=== PATIENT | female | born 1995 | race Caucasian/White ===

== ENCOUNTER 2016-02-27 11:08 | Emergency (ER) | payer OTHER ==
[2016-02-27 12:11] VITALS: BP 124/76
[2016-02-27] MEDS ORDERED: HYDROCODONE/ACETAMINOPHEN 5-325 MG 6 TAB/DSPK PO PRN (13:58)
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
== END 2016-02-27 14:17 | disposition home or self-care (01) ==
LOC: ER 11:08
DX: S71.012A Laceration without foreign body, left hip, initial encounter (principal); V87.7XXA Person injured in collision between other specified motor vehicles (traffic), initial encounter; F17.210 Nicotine dependence, cigarettes, uncomplicated
CPT/HCPCS: 99283

== ENCOUNTER 2019-03-06 18:30 | Emergency (ER) | payer SELFPAY | END 2019-03-06 19:32 | disposition left against medical advice (07) | LOC: ER 18:30 | DX: Z53.21 Procedure and treatment not carried out due to patient leaving prior to being seen by health care provider (principal) ==

== ENCOUNTER 2019-06-02 13:35 | Emergency (ER) | payer OTHER ==
[2019-06-02] MEDS ORDERED: CEFTRIAXONE INJ 1000 MG VIAL IM ONE (15:08)
--- NOTE | 2019-06-02 15:10 | ER Document Report ---
ED ENT - General Stated Complaint: SORE THROAT Time Seen by Provider: 06/02/19 14:18 Mode of Arrival: Ambulatory Information source: Patient Notes: 23-year-old woman presents to the emergency department with a history of diagnosed with strep throat on Saturday 1 week ago. Apparently treated with clindamycin, states that her symptoms have not improved. She contacted the urgent care and was told that she should come to the emergency department. She has a history of allergy to penicillin. TRAVEL OUTSIDE OF THE [place] IN LAST 30 DAYS: No - Related Data Allergies/Adverse Reactions: codeine Allergy (Verified 06/02/19 15:07) diphenhydramine [From Benadryl] Allergy (Verified 06/02/19 15:07) lorazepam [From Ativan] Allergy (Verified 06/02/19 15:07) Penicillins Allergy (Verified 06/02/19 15:07) Past Medical History - Social History Smoking Status: Unknown if Ever Smoked Family History: Reviewed & Not Pertinent Psychiatric Medical History: Reports: Hx Anxiety, Hx Attention Deficit Hyperactivity Disorder, Hx Depression Past Surgical History: Reports: Hx Oral Surgery Review of Systems - Review of Systems Notes: Constitutional: Negative for fever. HENT: + Sore throat. Eyes: Negative for visual changes. Cardiovascular: Negative for chest pain. Respiratory: Negative for shortness of breath. Gastrointestinal: Negative for abdominal pain, vomiting or diarrhea. Genitourinary: Negative for dysuria. Musculoskeletal: Negative for back pain. Skin: Negative for rash. Neurological: Negative for headaches, weakness or numbness. 10 point ROS negative except as marked above and in HPI. Physical Exam - Vital signs Vitals: Temp Pulse Resp BP Pulse Ox 98.3 F 87 16 119/69 98 06/02/19 13:36 06/02/19 13:36 06/02/19 13:36 06/02/19 13:36 06/02/19 13:36 - Notes Notes: PHYSICAL EXAMINATION: Physical Exam: General: Well-nourished well-developed in no acute distress HEENT: NC/AT, pupils equal round and reactive to light, MM moist,nares clear, oropharynx clear, airway patent Neck: supple, no adenopathy, no masses. Good range of motion Lungs: clear, no wheezing, no rales no rhonchi CVS: Regular rate and rhythm no murmur gallop or rub Abdomen: Soft, active, nontender, no masses, no hepatosplenomegaly Ext: No edema, clubbing or cyanosis. Neuro: Alert and responsive, moving all 4 extremities on command, cranial nerves intact, no focal findings Skin: Intact no open lesions, no rash PSYCH: Normal mood, normal affect. Course - Re-evaluation Re-evalutation: 06/02/19 16:23 Patient was given Rocephin 1 g IM, monitored watched in the emergency department for approximately 1 hour, no adverse reaction. She has been sent home with cefdinir 300 mg twice daily for 10 days. Of asked her to follow-up with her doctor as needed. - Vital Signs Vital signs: Temp Pulse Resp BP Pulse Ox 98.2 F 73 18 121/77 100 06/02/19 16:40 06/02/19 16:40 06/02/19 16:40 06/02/19 16:40 06/02/19 16:40 Discharge - Discharge Clinical Impression: Pharyngitis Qualifiers: Pharyngitis/tonsillitis etiology: streptococcus Qualified Code(s): J02.0 - Streptococcal pharyngitis Condition: Good Disposition: HOME, SELF-CARE Instructions: Strep Throat ([facility]) Additional Instructions: You were treated with a shot of Rocephin and a change of antibiotics, Cefdinir for strep throat which did not improve on clindamycin. Continue to use Tylenol for pain, gargle with warm salt water, follow-up with your primary care doctor or return to the emergency department if your symptoms are worsening or if you have other concerns. HOME CARE INSTRUCTIONS & INFORMATION: Thank you for choosing us for your medical needs. We hope you're satisfied with the care you received. After you leave, you must properly care for your problem and, at the same time, observe its progress. Any condition can change. Some illnesses can change rapidly over hours or days. If your condition worsens, return to the Emergency Department or see your physician promptly. ABOUT YOUR X-RAYS AND EKG'S: If you had an EKG or X-rays taken, they have been read by the Emergency Physician. The X-rays and EKG's will also be read by a Radiologist or Pickle Water Pump Operator within 24 hours. If discrepancies are noted, you will be notified by telephone. Please be certain the ED has a correct telephone number & address where you can be reached. Also, realize that some fractures or abnormalities do not show up on initial X-rays. If your symptoms continue, see your physician. ABOUT YOUR LABORATORY TEST: If you had laboratory tests, the results have been reviewed by the Emergency Physician. Some test results (for example cultures) may not be available for several days. You will be contacted if any test result shows you need additional treatment. Please be certain the ED has a correct telephone number and address where you can be reached. ABOUT YOUR MEDICATIONS: You will receive instructions on how to take your medicine on the prescription label you receive. Additional information may be provided by the Pharmacy. If you have questions afterwards, call the ED for clarification or further instructions. Some prescribed medications may cause drowsiness. Do not perform tasks such as driving a car or operating machinery without consulting your Pharmacist. If you feel you need a refill of pain medication, your condition will need re-evaluation. Please do not call for a refill of any medication. ABOUT YOUR SIGNATURE: Signature of this document acknowledges to followin. Understanding that you received emergency treatment and that you may be released before al medical problems are known or treated. Please be certain the ED has a correct phone number & address where you can be reached. 2. Acknowledgement that you will arrange for follow-up care as recommended. 3. Authorization for the Emergency Physician to provide information to your follow-up Physician in order to maximize your care. AT ANY TIME, IF YOUR SYMPTOMS CHANGE SIGNIFICANTLY OR WORSEN OR YOU DEVELOP NEW SYMPTOMS, RETURN TO THE EMERGENCY DEPARTMENT IMMEDIATELY FOR RE-EVALUATION. OUR GOAL IS TO PROVIDE EXCELLENT MEDICAL CARE! WE HOPE THAT WE HAVE MET YOUR EXPECTATIONS DURING YOUR EMERGENCY DEPARTMENT VISIT AND THAT YOU FEEL YOU HAVE RECEIVED EXCELLENT CARE! Prescriptions: Cefdinir 300 mg PO BID #20 capsule
[2019-06-02] MEDS ORDERED: LIDOCAINE 1% INJ (10 MG/ML) 10 ML MDV INJ ONE (15:33)
[2019-06-02 16:41] VITALS: BP 121/77
== END 2019-06-02 16:52 | disposition home or self-care (01) ==
LOC: ER 13:35
DX: J02.0 Streptococcal pharyngitis (principal); Z88.6 Allergy status to analgesic agent; Z88.5 Allergy status to narcotic agent; Z88.8 Allergy status to other drugs, medicaments and biological substances; Z88.0 Allergy status to penicillin
CPT/HCPCS: 99282; 96372; J0696

== ENCOUNTER 2019-09-06 06:57 | Emergency (ER) | payer OTHER ==
[2019-09-06] MEDS ORDERED: NORMAL SALINE 1000 ML 1,000 ML IV ONE ×2 (07:28→09:13)
[2019-09-06] MEDS ORDERED: KETOROLAC TROMETHAMINE INJ/PF 30 MG/1 ML SDV IV ONE ×2 (07:28→13:56)
[2019-09-06] MEDS ORDERED: ONDANSETRON HCL INJ/PF 4 MG/2 ML SDV IV ONE ×2 (07:28→09:14)
[2019-09-06] MEDS ORDERED: MORPHINE SULFATE 10 MG/ML INJ IV ONE (07:28)
--- NOTE | 2019-09-06 07:30 | ER Document Report ---
ED Medical Screen (RME) - General Stated Complaint: FLANK PAIN Time Seen by Provider: 09/06/19 07:24 Notes: 24-year-old female with chief complaint of sudden onset severe right flank pain radiating around to the mid to lower right abdomen. She reports nausea but denies vomiting. She has had kidney stones previously, she has always been able to pass these, she has never required stenting or surgery. She states it was difficult to urinate when she got up. She denies fever, vaginal bleeding or discharge, dysuria. TRAVEL OUTSIDE OF THE [place] IN LAST 30 DAYS: No - Related Data Allergies/Adverse Reactions: codeine Allergy (Verified 06/02/19 15:07) diphenhydramine [From Benadryl] Allergy (Verified 06/02/19 15:07) lorazepam [From Ativan] Allergy (Verified 06/02/19 15:07) Penicillins Allergy (Verified 06/02/19 15:07) Past Medical History Psychiatric Medical History: Reports: Hx Anxiety, Hx Attention Deficit Hyperactivity Disorder, Hx Depression Past Surgical History: Reports: Hx Oral Surgery Physical Exam - Vital signs Vitals: Temp Pulse Resp BP Pulse Ox 98.4 F 89 20 131/74 H 97 09/06/19 07:07 09/06/19 07:07 09/06/19 07:07 09/06/19 07:07 09/06/19 07:07 - General General appearance: Other - Anxious, appears to be in pain - Abdominal Tenderness: Tender - Generalized tenderness over the right side of the abdomen, nonspecific, no guarding Course - Re-evaluation Re-evalutation: I have greeted and performed a rapid initial assessment of this patient. A comprehensive ED assessment and evaluation of the patient, analysis of test results and completion of the medical decision making process will be conducted by additional ED providers. - Vital Signs Vital signs: Temp Pulse Resp BP Pulse Ox 98.4 F 89 20 131/74 H 97 09/06/19 07:07 09/06/19 07:07 09/06/19 07:07 09/06/19 07:07 09/06/19 07:07
[2019-09-06 07:50] LABS: ABSOLUTE BASOPHILS # (AUTO) 0.1 10^3/uL (0.0-0.2); ABSOLUTE EOSINOPHILS # (AUTO) 0.1 10^3/uL (0.0-0.6); ABSOLUTE LYMPHOCYTES (AUTO) 2.5 10^3/uL (0.5-4.7); ABSOLUTE MONOCYTES (AUTO) 0.7 10^3/uL (0.1-1.4); ABSOLUTE NEUT (AUTO) 11.4 10^3/uL (1.7-8.2); BASOPHILS % (AUTO) 0.6 % (0-2); EOSINOPHILS % (AUTO) 0.8 % (0-6); HEMATOCRIT 38.9 % (36.0-47.0); HEMOGLOBIN 13.3 g/dL (12.0-15.5); LYMPHOCYTES % (AUTO) 17.1 % (13-45); MEAN CORPUSCULAR HEMOGLOBIN 30.7 pg (27.0-33.4); MEAN CORPUSCULAR HGB CONC 34.1 g/dL (32.0-36.0); MEAN CORPUSCULAR VOLUME 90 fl (80-97); MONOCYTES % (AUTO) 4.4 % (3-13); PLATELET COUNT 252 10^3/uL (150-450); RED BLOOD COUNT 4.33 10^6/uL (3.72-5.28); RED CELL DISTRIBUTION WIDTH 12.9 % (11.5-14.0); SEGMENTED NEUTROPHILS % (AUTO) 77.1 % (42-78); TOTAL CELLS COUNTED % (AUTO) 100 %; WHITE BLOOD COUNT 14.8 10^3/uL (4.0-10.5)
[2019-09-06 08:07] LABS: ALBUMIN 4.3 g/dL (3.5-5.0); ALKALINE PHOSPHATASE 82 U/L (38-126); ANION GAP 8 (5-19); ASPARTATE AMINO TRANSFERASE 22 U/L (14-36); BILIRUBIN,TOTAL 0.3 mg/dL (0.2-1.3); BLOOD UREA NITROGEN 18 mg/dL (7-20); CALCIUM 9.2 mg/dL (8.4-10.2); CARBON DIOXIDE 26 mmol/L (22-30); CHLORIDE 105 mmol/L (98-107); GLUCOSE 102 mg/dL (75-110); POTASSIUM 4.4 mmol/L (3.6-5.0); TOTAL PROTEIN 7.4 g/dL (6.3-8.2)
--- NOTE | 2019-09-06 08:31 | RADIOLOGY REPORT (SQ) ---
EXAM DESCRIPTION: U/S RETROPERITON (RENAL/AORTA) IMAGES COMPLETED DATE/TIME: 09/06/2019 8:12 am REASON FOR STUDY: right flank pain COMPARISON: None. TECHNIQUE: Dynamic and static grayscale images acquired of the kidneys and bladder and recorded on P ACS. Additional selected color Doppler and spectral images recorded. LIMITATIONS: None. FINDINGS: RIGHT KIDNEY: Normal size. Normal echogenicity. No solid or suspicious masses. No hydronep hrosis. No calcifications. LEFT KIDNEY: Normal size. Normal echogenicity. No solid or suspicious masses. No hydronephrosis. No calcifications. BLADDER: No masses. OTHER FINDINGS: No other significant finding. IMPRESSION: NORMAL RENAL AND BLADDER ULTRASOUND. TECHNICAL DOCUMENTATION: JOB ID: [id number] 2010 [employer]- All Rights Reserved Reading location - IP/workstation name: [email or web address]
[2019-09-06] MEDS ORDERED: VANCOMYCIN HCL INJ 1000 MG VIAL IV ONE (09:06)
[2019-09-06] MEDS ORDERED: HYDROMORPHONE HCL INJ/PF 2 MG/ML AMPULE IV ONE (09:12)
[2019-09-06] MEDS ORDERED: VANCOMYCIN HCL INJ 1000 MG VIAL ONE (09:40)
[2019-09-06 09:55] LABS: APPEARANCE,URINE CLEAR; BILIRUBIN,URINE NEGATIVE (NEGATIVE); COLOR,URINE YELLOW; GLUCOSE, URINE NEGATIVE (NEGATIVE); KETONES,URINE NEGATIVE (NEGATIVE); LEUKOCYTE ESTERASE,URINE TRACE (NEGATIVE); NITRITE,URINE NEGATIVE (NEGATIVE); PROTEIN,URINE NEGATIVE (NEGATIVE); URINE SPECIFIC GRAVITY 1.016; UROBILINOGEN,URINE NEGATIVE mg/dL (<2.0)
[2019-09-06] MEDS ORDERED: METRONIDAZOLE 500 MG/NS RTU 500 MG/100 ML RTUPB IV SCH (12:00)
--- NOTE | 2019-09-06 12:43 | RADIOLOGY REPORT (SQ) ---
EXAM DESCRIPTION: CT ABD/PELVIS WITH IV ORAL IMAGES COMPLETED DATE/TIME: 09/06/2019 12:23 pm REASON FOR STUDY: abd and pelvic pain/bact.vaginosis/current mense COMPARISON: None. TECHNIQUE: CT scan of the abdomen and pelvis performed using helical scanning technique with dynamic intravenous contrast injection. No oral contrast. Images reviewed with lung, soft tissue, and bone w indows. Reconstructed coronal and sagittal MPR images reviewed. Delayed images for evaluation of the urinary system also acquired. All images stored on PACS. All CT scanners at this facility use dose modulation, iterative reconstruction, and/or weight based d osing when appropriate to reduce radiation dose to as low as reasonably achievable (ALARA). [facility]: Dose Right [facility]: CareDose [facility]: Dose Right [facility]: Teradose 4D [facility]: [email or web address] CONTRAST TYPE AND DOSE: contrast/concentration: Isovue 350.00 mmol/ml; Total Contrast Delivered: 81. 0 ml; Total Saline Delivered: 68.0 ml RENAL FUNCTION: GFR > 60. RADIATION DOSE: CT Rad equipment meets quality standard of care and radiation dose reduction techniq ues were employed. CTDIvol: 6.9 - 9.0 mGy. DLP: 854 mGy-cm.. LIMITATIONS: None. FINDINGS: LOWER CHEST: No significant findings. LIVER: Normal size. No enhancing masses. No dilated ducts. SPLEEN: Normal size. No focal lesions. PANCREAS: No masses identified. No significant calcifications. No adjacent inflammation or peripancre atic fluid collections. Pancreatic duct not dilated. GALLBLADDER: No calcified stones. No inflammatory changes to suggest cholecystitis. ADRENAL GLANDS: No significant masses. RIGHT KIDNEY AND URETER: No cysts identified. No solid masses identified. No calcified stones. No hyd ronephrosis or hydroureter. LEFT KIDNEY AND URETER: No cysts identified. No solid masses identified. No calcified stones. No hydr onephrosis or hydroureter. AORTA AND VESSELS: No aneurysm. No dissection. Renal arteries, SMA, celiac without significant stenos is. RETROPERITONEUM: No bulky retroperitoneal adenopathy. BOWEL AND PERITONEAL CAVITY: No obstruction. APPENDIX: Normal caliber. PELVIS: Trace free fluid. Unremarkable bladder. ABDOMINAL WALL: No masses. No hernias. BONES: No acute findings. OTHER: No other significant finding. IMPRESSION: Trace pelvic free fluid. Normal caliber appendix. TECHNICAL DOCUMENTATION: JOB ID: [id number] [place]-72 Quality ID # [id number]: Final reports with documentation of one or more dose reduction techniques (e.g., Au tomated exposure control, adjustment of the mA and/or kV according to patient size, use of iterative reconstruction technique) 2010 [employer]- All Rights Reserved Reading location - IP/workstation name: [email or web address]
--- NOTE | 2019-09-06 13:10 | RADIOLOGY REPORT (SQ) ---
EXAM DESCRIPTION: U/S NON OB PEL W/DOPPLER IMAGES COMPLETED DATE/TIME: 09/06/2019 12:47 pm REASON FOR STUDY: pelvic pain COMPARISON: None. TECHNIQUE: Dynamic and static grayscale images acquired of the pelvis via transvaginal approach and recorded on PACS. Additional selected color Doppler and spectral images recorded. LIMITATIONS: None. FINDINGS: UTERUS: Contour normal. No mass. ENDOMETRIAL STRIPE: No focal or generalized thickening. No masses. CERVIX: No nabothian cysts. RIGHT OVARY AND DOPPLER: Normal size. No worrisome masses. Normal arterial vascular flow without evid ence for torsion. LEFT OVARY AND DOPPLER: Normal size. No worrisome masses. Normal arterial vascular flow without evide nce for torsion. FREE FLUID: Trace cul-de-sac free fluid. OTHER: No other significant finding. MEASUREMENTS: UTERUS: 7.6 x 5.6 x 3.5 cm ENDOMETRIAL STRIPE: 3 mm RIGHT OVARY: 3 x 2 x 1.7 cm LEFT OVARY: 2.5 x 2.7 x 1.8 cm IMPRESSION: Age-appropriate exam. TECHNICAL DOCUMENTATION: JOB ID: [id number] [place]-72 [employer]- All Rights Reserved Rev-07/12 [place]-72 Reading location - IP/workstation name: [email or web address]
[2019-09-06] MEDS ORDERED: DOXYCYCLINE HYCLATE INJ 100 MG VIAL IV ONE (13:55)
--- NOTE | 2019-09-06 15:33 | ER Document Report ---
Entered by SALONI JHAVERI SCRIBE 09/06/19 0850 Acting as scribe for:NALINI SCHUMACHER MD ED GI/ - General Chief Complaint: Flank Pain Stated Complaint: FLANK PAIN Time Seen by Provider: 09/06/19 07:24 Information source: Patient Notes: This 24 year old female patient presents to the emergency department today with bilateral lower quadrant abdominal pain. Patient states she woke up this morning at 6 am from abdominal pain. Patient states her last bowel movement was this morning, it was normal in color, and she did not have to strain. Patient states she is currently on her period and reports nausea, but denies vomiting. Denies urinary symptoms or abnormal vaginal discharge. Patient states she is currently on antibiotics for a infected tooth and bacterial vaginosis. Patient has a history of kidney stones and a ovarian cyst. TRAVEL OUTSIDE OF THE [place] IN LAST 30 DAYS: No - Related Data Allergies/Adverse Reactions: Penicillins Allergy (Verified 06/02/19 15:07) Home Medications: Zoloft 150MG Past Medical History - General Information source: Patient - Social History Smoking Status: Current Some Day Smoker Cigarette use (# per day): Yes Chew tobacco use (# tins/day): No Drug Abuse: None Family History: Reviewed & Not Pertinent Patient has homicidal ideation: No Renal/ Medical History: Reports: Hx Kidney Stones, Hx Ovarian Cysts Psychiatric Medical History: Reports: Hx Anxiety, Hx Attention Deficit Hyperactivity Disorder, Hx Depression Past Surgical History: Reports: Hx Oral Surgery Review of Systems - Review of Systems Constitutional: No symptoms reported EENT: No symptoms reported Cardiovascular: No symptoms reported Respiratory: No symptoms reported Gastrointestinal: See HPI, Abdominal pain, Nausea, Last bowel movement - normal. denies: Vomiting Genitourinary: See HPI Female Genitourinary: See HPI. denies: Vaginal discharge Musculoskeletal: No symptoms reported Skin: No symptoms reported Hematologic/Lymphatic: No symptoms reported Neurological/Psychological: No symptoms reported -: Yes All other systems reviewed and negative Physical Exam - Vital signs Vitals: Temp Pulse Resp BP Pulse Ox 98.4 F 89 20 131/74 H 97 09/06/19 07:07 09/06/19 07:07 09/06/19 07:07 09/06/19 07:07 09/06/19 07:07 - General General appearance: Alert, Other - Appears in distress - HEENT Head: Normocephalic, Atraumatic Eyes: Normal Pupils: PERRL - Respiratory Respiratory status: No respiratory distress Chest status: Nontender Breath sounds: Normal Chest palpation: Normal - Cardiovascular Rhythm: Regular Heart sounds: Normal auscultation, S1 appreciated, S2 appreciated Murmur: No - Abdominal Distension: No distension Bowel sounds: Normal Notes: Upper abdomen is soft and nontender with palpation. Tenderness with palpation to bilateral lower quadrants. Significant guarding. - Extremities General upper extremity: Normal inspection. No: Edema General lower extremity: Normal inspection. No: Edema - Neurological Neuro grossly intact: Yes Cognition: Normal Orientation: AAOx4 Speech: Normal - Psychological Associated symptoms: Normal affect, Normal mood - Skin Skin Temperature: Warm Skin Moisture: Dry Skin Color: Normal Course - Re-evaluation Re-evalutation: 09/06/19 15:17 Patient currently resting sleeping comfortably. Discussed results with patient that shows that ultrasound of her kidneys and bladder ureter system did not show any obstruction or hydronephrosis etc. Also the CT scan of her abdomen and pelvis did not show any obstruction appendicitis colitis or diverticulitis or any inflammatory response. There was no obstruction of the system. Also patient had a ultrasound of the pelvis which again did not show any evidence for ovarian cyst rupture or any kind inflammatory disease process. Patient reports she is currently being treated for bacterial vaginosis with Flagyl. Patient presents today with increased pain in her pelvic and bilateral lower quadrants right and left. Also patient has an elevated white blood cell count of 15,000. Patient has received IV antibiotics while in the emergency department as well as IV fluids and IV pain medications. Patient is not at this time. - Vital Signs Vital signs: Temp Pulse Resp BP Pulse Ox 98.5 F 89 14 106/56 L 96 09/06/19 13:00 09/06/19 07:07 09/06/19 13:30 09/06/19 13:30 09/06/19 13:30 09/06/19 15:19 Vital signs stable - Laboratory Result Diagrams: 09/06/19 07:35 09/06/19 07:35 Laboratory results interpreted by me: 09/06/19 09/06/19 07:35 09:25 WBC 14.8 H Absolute Neuts (auto) 11.4 H Urine Blood MODERATE H Ur Leukocyte Esterase TRACE H 09/06/19 15:19 Moderate blood in urine patient is on her menstrual cycle. White blood cell count almost 15,014.8. - Diagnostic Test Radiology reviewed: Image reviewed, Reports reviewed Radiology results interpreted by me: 09/06/19 15:20 CT scan of abdomen with IV and oral contrast showed no obstruction no hydronephrosis no kidney stones no no inflammatory diseases of the colon and no other acute process noted. Ultrasound of the kidneys and bladder show no hydronephrosis and no obstruction. Ultrasound of the pelvis showed no acute inflammatory process and appeared to be normal adult pelvis. Discharge - Discharge Clinical Impression: Pelvic pain, Leukocytosis, Bacterial vaginosis Condition: Stable Disposition: HOME, SELF-CARE Additional Instructions: Pelvic Inflammatory Disease You have been diagnosed as having pelvic inflammatory disease (PID). This is an infection of the fallopian tubes and surrounding areas of the pelvis. Symptoms are usually pelvic pain and discharge. The infection can do permanent damage to the tubes and ovaries. It should be taken very seriously. Treatment is antibiotics, which may be given by vein or by injection if the infection seems serious. It's important that you receive all recommended medication. Condoms help prevent spread of this infection to others. Because this infection is spread sexually, it's important that your sexual partner be checked before resuming sexual relations. If a culture shows gonorrhea or chlamydia organisms, the law requires that this be reported to the health department. Call the doctor or return at once if you develop increasing fever, rash, severe pelvic pain, vaginal bleeding (other than your period), or problems with your bladder or bowels.Pelvic Pain There are many causes of pain in the pelvic area. The cause could be the tubes, ovaries, uterus, intestines, appendix, pelvic muscles and connective tissue, or the urinary tract. The cause of your pelvic pain is not clear. However, it seems safe to treat you outside the hospital. If the pain sounds like a temporary problem, we sometimes wait to see if it goes away. Other patients may need additional tests, such as pelvic ultrasound or cultures. Conditions may change. Call us or come back for reexamination if any problems occur, such as: (1) Pain that becomes more severe, steady, or becomes concentrated in one specific area. Also, pain that is more severe with movement or coughing. (2) Vomiting that persists or becomes more frequent. (3) Blood in the vomitus, urine, or bowel movements. Blood in the stool may have a tarry or black appearance. (4) Shaking chills or fever greater than 100 degrees. (5) The abdomen becomes more distended or swollen. (6) Bowel movements cease. (7) Heavy vaginal bleeding. Prescriptions: Ondansetron [Zofran Odt 4 mg Tablet] 1 - 2 tab PO Q4HP PRN #10 tab.rapdis PRN Reason: Doxycycline Monohydrate 100 mg PO BID #20 capsule Ibuprofen [Motrin 800 mg Tablet] 800 mg PO Q8H PRN #30 tab PRN Reason: prn pain Hydrocodone/Acetaminophen [[place] 5-325 mg Tablet] 1 tab PO QID PRN #6 tablet PRN Reason: severe pain I personally performed the services described in the documentation, reviewed and edited the documentation which was dictated to the scribe in my presence, and it accurately records my words and actions.
[2019-09-06 16:17] VITALS: BP 113/67
== END 2019-09-06 16:57 | disposition home or self-care (01) ==
LOC: ER 06:57
DX: N76.0 Acute vaginitis (principal); B96.89 Other specified bacterial agents as the cause of diseases classified elsewhere; R10.31 Right lower quadrant pain; R10.32 Left lower quadrant pain; R10.2 Pelvic and perineal pain; D72.829 Elevated white blood cell count, unspecified; R10.9 Unspecified abdominal pain; R11.0 Nausea; F17.210 Nicotine dependence, cigarettes, uncomplicated; Z88.0 Allergy status to penicillin; Z79.899 Other long term (current) drug therapy; Z87.442 Personal history of urinary calculi
CPT/HCPCS: 96376; 99284; 96361; 96375; 96365; 96366; 96367; 36415; 87040; 83605; 84703; 85025; 87077; 80053; 81001; 87186; 87150 ×26; 76770; 76856; 93976; 74177; J3490 ×2; J1885; J2270; J1170; J2405; J7030; J3370

== ENCOUNTER 2019-09-30 08:58 | Emergency (ER) | payer OTHER ==
[2019-09-30 10:29] LABS: ABSOLUTE EOSINOPHILS # (AUTO) 0.1 10^3/uL (0.0-0.6); ABSOLUTE MONOCYTES (AUTO) 0.3 10^3/uL (0.1-1.4); SEGMENTED NEUTROPHILS % (AUTO) 59.9 % (42-78); TOTAL CELLS COUNTED % (AUTO) 100 %
[2019-09-30 10:35] LABS: ABSOLUTE NEUT (AUTO) 3.6 10^3/uL (1.7-8.2); BASOPHILS % (AUTO) 0.7 % (0-2); EOSINOPHILS % (AUTO) 1.2 % (0-6); HEMATOCRIT 37.6 % (36.0-47.0); LYMPHOCYTES % (AUTO) 33.2 % (13-45); MEAN CORPUSCULAR HEMOGLOBIN 31.3 pg (27.0-33.4); MEAN CORPUSCULAR HGB CONC 34.5 g/dL (32.0-36.0); MEAN CORPUSCULAR VOLUME 91 fl (80-97); PLATELET COUNT 247 10^3/uL (150-450); RED BLOOD COUNT 4.14 10^6/uL (3.72-5.28); RED CELL DISTRIBUTION WIDTH 13.4 % (11.5-14.0); WHITE BLOOD COUNT 5.9 10^3/uL (4.0-10.5)
[2019-09-30 10:36] LABS: APPEARANCE,URINE SLIGHTLY-CLOUDY; BILIRUBIN,URINE NEGATIVE (NEGATIVE); COLOR,URINE YELLOW; GLUCOSE, URINE NEGATIVE (NEGATIVE); KETONES,URINE NEGATIVE (NEGATIVE); LEUKOCYTE ESTERASE,URINE SMALL (NEGATIVE); NITRITE,URINE NEGATIVE (NEGATIVE); PROTEIN,URINE NEGATIVE (NEGATIVE); URINE SPECIFIC GRAVITY 1.017; UROBILINOGEN,URINE NEGATIVE mg/dL (<2.0)
[2019-09-30 10:54] LABS: ALBUMIN 4.6 g/dL (3.5-5.0); ALKALINE PHOSPHATASE 66 U/L (38-126); ANION GAP 8 (5-19); ASPARTATE AMINO TRANSFERASE 23 U/L (14-36); BILIRUBIN,TOTAL 0.5 mg/dL (0.2-1.3); BLOOD UREA NITROGEN 14 mg/dL (7-20); CALCIUM 9.5 mg/dL (8.4-10.2); CARBON DIOXIDE 26 mmol/L (22-30); CHLORIDE 104 mmol/L (98-107); GLUCOSE 87 mg/dL (75-110); POTASSIUM 4.3 mmol/L (3.6-5.0); TOTAL PROTEIN 7.7 g/dL (6.3-8.2)
--- NOTE | 2019-09-30 12:35 | RADIOLOGY REPORT (SQ) ---
EXAM DESCRIPTION: U/S NON-OB PELVIS W/O DOP IMAGES COMPLETED DATE/TIME: 09/30/2019 12:22 pm REASON FOR STUDY: Pelvic pain COMPARISON: 09/06/2019 TECHNIQUE: Dynamic and static grayscale images acquired of the pelvis via transabdominal approach an d recorded on PACS. Additional selected color Doppler and spectral images recorded. LIMITATIONS: None. FINDINGS: UTERUS: Contour normal. No mass. ENDOMETRIAL STRIPE: No focal or generalized thickening. No masses. CERVIX: 2.4 cm. No nabothian cysts. RIGHT OVARY: Normal size. No worrisome masses. . LEFT OVARY: Normal size. No worrisome masses. . FREE FLUID: None noted. OTHER: No other significant finding. MEASUREMENTS: UTERUS: 7.7 x 5.8 x 3.9 cm. ENDOMETRIAL STRIPE: 10 mm. RIGHT OVARY: 2.9 x 1.7 x 1.5 cm. LEFT OVARY: 2.7 x 1.9 x 2.1 cm. IMPRESSION: Normal pelvic ultrasound by transabdominal technique. Doppler imaging was not performed . TECHNICAL DOCUMENTATION: JOB ID: [id number] [employer]- All Rights Reserved Rev-07/12 Reading location - IP/workstation name: [email or web address]
--- NOTE | 2019-09-30 14:05 | ER Document Report ---
ED General - General Chief Complaint: Abdominal Pain Stated Complaint: ABDOMINAL PAIN Time Seen by Provider: 09/30/19 10:18 TRAVEL OUTSIDE OF THE [place] IN LAST 30 DAYS: No - HPI Notes: Patient is a 24-year-old female presents emergency department for evaluation of pelvic pain. She states is been present for over a month. She was seen here a month ago, diagnosed with PID. She was treated with antibiotics. She took all the doxycycline at home that she was prescribed. She states that she had some relief from her pain, but then it became steadily worse. It was around that time that she had her last menstrual period. She is expecting her next menstrual period soon. She denies any fevers or chills. She had nausea and one episode of emesis when she was having significant pain. She is had normal bowel movements. Normal urination. She complains only of normal sounding physiological discharge. She states that nothing makes her pain better or worse. She describes it as a constant pressure and sharp pain. She has no history of STDs. - Related Data Allergies/Adverse Reactions: Penicillins Allergy (Verified 09/30/19 09:41) Home Medications: zoloft Past Medical History - General Information source: Patient - Social History Smoking Status: Current Some Day Smoker Chew tobacco use (# tins/day): No Frequency of alcohol use: None Drug Abuse: Marijuana Family History: Reviewed & Not Pertinent - Medical History Medical History: Other - Endometriosis Renal/ Medical History: Reports: Hx Kidney Stones, Hx Ovarian Cysts Psychiatric Medical History: Reports: Hx Anxiety, Hx Attention Deficit Hyperactivity Disorder, Hx Depression Past Surgical History: Reports: Hx Oral Surgery Review of Systems - Review of Systems Female Genitourinary: See HPI -: Yes All other systems reviewed and negative Physical Exam - Vital signs Vitals: Temp Pulse Resp BP Pulse Ox 98.6 F 76 17 120/74 98 09/30/19 09:06 09/30/19 09:06 09/30/19 09:06 09/30/19 09:06 09/30/19 09:06 - Notes Notes: Vital signs reviewed, please refer to chart. Head is normocephalic, atraumatic. Pupils equal round, reactive to light. Neck is supple without meningismus. Heart is regular rate and rhythm. Lungs are clear to auscultation bilaterally. Abdomen is soft, diffusely tender without rebound or guarding, normoactive bowel sounds throughout. Extremities without cyanosis, clubbing. Posterior calves are nontender. Peripheral pulses are equal. Skin is warm and dry. Patient is awake, alert, neurological exam is nonfocal. Course - Re-evaluation Re-evalutation: 09/30/19 14:02 Patient presents to the emergency department for evaluation. She laboratory vesication's as ordered through triage. She has no significant abnormality note d. Her vital signs are normal. She had an ultrasound which was found to be unremarkable. The patient has never been positive for gonorrhea or chlamydia. She was treated for PID, but I think her symptoms are much more consistent with an escalation of her endometriosis. The patient had been on control in the past, which she stated helped her endometriosis, but she has been unable to follow with her primary care provider in regards to getting this prescribed. She is following up with OB, but their soonest appointment was 3 months out. I encouraged her to continue to try and follow-up closely with OB. Otherwise I will send her with anti-inflammatories, pain medication, and start her on Ortho Tri-Cyclen Lo, which she has tolerated in the past. I will give her a one-month prescription of this. She is already familiar with how to take control pills. Otherwise, I do not see any significant emergent abnormality on her exam or on lab work today. She is told if her symptoms change she needs to return, otherwise follow-up with OB and primary care. - Vital Signs Vital signs: Temp Pulse Resp BP Pulse Ox 98.6 F 76 17 120/74 98 09/30/19 09:06 09/30/19 09:06 09/30/19 09:06 09/30/19 09:06 09/30/19 09:06 - Laboratory Result Diagrams: 09/30/19 09:55 09/30/19 09:55 Laboratory results interpreted by me: 09/30/19 10:10 Ur Leukocyte Esterase SMALL H - Diagnostic Test Radiology reviewed: Reports reviewed Radiology results interpreted by me: 09/30/19 14:03 Pelvis Ultrasound 09/30/19 10:22 IMPRESSION: Normal pelvic ultrasound by transabdominal technique. Doppler imaging was not performed. Discharge - Discharge Clinical Impression: Pelvic pain, Endometriosis Condition: Stable Disposition: HOME, SELF-CARE Instructions: Pelvic Pain ([facility]) Additional Instructions: Take medications as prescribed. Follow-up with OB and primary care as soon as possible. Return to the emergency department if you develop worsening or new concerning symptoms of any sort.
[2019-09-30] MEDS ORDERED: OXYCODONE-ACETAMINOPHEN 5-325 MG TABLET PO ONE (14:30)
[2019-09-30] MEDS ORDERED: KETOROLAC TROMETHAMINE 60 MG/2 ML SDV IM ONE (14:30)
[2019-09-30 14:49] VITALS: BP 128/72
== END 2019-09-30 14:49 | disposition home or self-care (01) ==
LOC: ER 08:58
DX: N80.9 Endometriosis, unspecified (principal); R10.2 Pelvic and perineal pain; R11.2 Nausea with vomiting, unspecified; F17.200 Nicotine dependence, unspecified, uncomplicated; F32.9 Major depressive disorder, single episode, unspecified; F41.9 Anxiety disorder, unspecified; Z79.899 Other long term (current) drug therapy; Z88.0 Allergy status to penicillin; Z87.42 Personal history of other diseases of the female genital tract
CPT/HCPCS: 99284; 96372; 36415; 83690; 85025; 81025; 80053; 81001; 76856; J1885

== ENCOUNTER 2019-12-01 09:41 | Emergency (ER) | payer OTHER ==
[2019-12-01 09:50] VITALS: BP 118/68
[2019-12-01 11:16] LABS: A TYPE INFLUENZA AG NEGATIVE (NEGATIVE); B INFLUENZA AG NEGATIVE (NEGATIVE)
--- NOTE | 2019-12-01 11:26 | ER Document Report ---
ED Flu Like - General Chief Complaint: Flu Symptoms Stated Complaint: FEVER/CONESTION Time Seen by Provider: 12/01/19 10:47 Primary Care Provider: TRAE FARAH MD [Primary Care Provider] - Follow up as needed Notes: CHIEF COMPLAINT: Multiple complaints HPI: 24-year-old female presenting to the emergency department with multiple complaints. She has been sick for a week. Low-grade fevers at home with myalgia. Complains of sore throat, cough, shortness of breath. States cough is slightly improved. Denies abdominal pain nausea vomiting. Denies dysuria. Patient does report loss of taste and smell that began yesterday ROS: See HPI - all other systems were reviewed and are otherwise negative Constitutional: no fever Eyes: no drainage, no blurred vision ENT: no runny nose, + sore throat Cardiovascular: no chest pain Resp: + SOB, + cough GI: no vomiting, no diarrhea, no abdominal pain : no dysuria Integumentary: no rash Allergy: no hives Musculoskeletal: no extremity pain or swelling Neurological: no numbness/tingling, no weakness MEDICATIONS: I agree with the patient medications as charted by the RN. ALLERGIES: I agree with the allergies as charted by the RN. PAST MEDICAL HISTORY/PAST SURGICAL HISTORY: Reviewed and agree as charted by RN. SOCIAL HISTORY: Reviewed and agree as charted by RN. FAMILY HISTORY: No significant familial comorbid conditions directly related to patient complaint EXAM: Reviewed vital signs as charted by RN. CONSTITUTIONAL: Alert and oriented and responds appropriately to questions. Slightly ill-appearing; well-nourished HEAD: Normocephalic; atraumatic EYES: PERRL; Conjunctivae clear, sclerae non-icteric ENT: normal nose; positive clear rhinorrhea; moist mucous membranes; very mild pharyngeal erythema is noted, no uvula edema or deviation, no tonsillar hypertrophy, phonation normal NECK: Supple without meningismus; non-tender; no cervical lymphadenopathy, no masses CARD: RRR; no murmurs, no clicks, no rubs, no gallops; symmetric distal pulses RESP: Normal chest excursion without splinting or tachypnea; breath sounds clear and equal bilaterally; no wheezes, no rhonchi, no rales, pulse oximetry 97% on room air not hypoxic ABD/GI: Normal bowel sounds; non-distended; soft, non-tender, no rebound, no guarding; no palpable organomegaly or masses. BACK: The back appears normal and is non-tender to palpation, there is no CVA tenderness EXT: Normal ROM in all joints; non-tender to palpation; no cyanosis, no effusions, no edema SKIN: Normal color for age and race; warm; dry; good turgor; no acute lesions noted NEURO: Moves all extremities equally; Motor and sensory function intact PSYCH: The patient's mood and manner are appropriate. Grooming and personal hygiene are appropriate. MDM: 24-year-old female presenting for multiple complaints. Flu and strep testing done by nursing staff were negative. Will obtain chest x-ray to evaluate for infiltrate or pneumonia. Suspect COVID. If chest x-ray negative for acute findings will treat with albuterol inhaler for shortness of breath, self quarantine at home pending test results with strict return precautions TRAVEL OUTSIDE OF THE [place] IN LAST 30 DAYS: No - Related Data Allergies/Adverse Reactions: Penicillins Allergy (Verified 09/30/19 09:41) Past Medical History - Social History Smoking Status: Unknown if Ever Smoked Family History: Reviewed & Not Pertinent Renal/ Medical History: Reports: Hx Kidney Stones, Hx Ovarian Cysts Psychiatric Medical History: Reports: Hx Anxiety, Hx Attention Deficit Hyperactivity Disorder, Hx Depression Past Surgical History: Reports: Hx Oral Surgery Physical Exam - Vital signs Vitals: Temp 98.3 F 12/01/19 09:42 Course - Re-evaluation Re-evalutation: 12/01/19 11:54 I do not visualize any significant infiltrate or pneumothorax on chest x-ray on my review. Strep and flu were negative. Patient will be person under investigation for COVID-19 at this time pending test results, return for worsening condition. Will place patient on albuterol for shortness of breath. - Vital Signs Vital signs: Temp Pulse Resp BP Pulse Ox 98.3 F 71 16 118/68 100 12/01/19 09:49 12/01/19 09:49 12/01/19 09:49 12/01/19 09:49 12/01/19 09:49 Discharge - Discharge Clinical Impression: Person under investigation for COVID-19, Shortness of breath, Sore throat (viral) Condition: Stable Disposition: HOME, SELF-CARE Instructions: COVID-19 Guidance for Persons Under Investigation Additional Instructions: You are considered a person under investigation for COVID-19 at this time self quarantine at home pending her test results which may take 2 to 5 days. You should receive notification from the hospital about your test results. Use the albuterol inhaler 2 puffs every 4 hours as needed for shortness of breath. Motrin Tylenol for pain or body ache. Hydrate well at home. Return for worsening condition Prescriptions: Albuterol Sulfate [Proair HFA Inhalation Aerosol 8.5 gm MDI] 2 puff IH Q4H PRN #1 mdi PRN Reason: Referrals: TRAE FARAH MD [Primary Care Provider] - Follow up as needed
--- NOTE | 2019-12-01 12:21 | RADIOLOGY REPORT (SQ) ---
EXAM DESCRIPTION: CHEST SINGLE VIEW IMAGES COMPLETED DATE/TIME: 12/01/2019 12:06 pm REASON FOR STUDY: sob COMPARISON: None. EXAM PARAMETERS: NUMBER OF VIEWS: One view. TECHNIQUE: Single frontal radiographic view of the chest acquired. RADIATION DOSE: NA LIMITATIONS: None. FINDINGS: LUNGS AND PLEURA: No opacities, masses or pneumothorax. No pleural effusion. MEDIASTINUM AND HILAR STRUCTURES: No masses. Contour normal. HEART AND VASCULAR STRUCTURES: Heart normal in size. Normal vasculature. BONES: No acute findings. HARDWARE: None in the chest. OTHER: No other significant finding. IMPRESSION: NO ACUTE RADIOGRAPHIC FINDING IN THE CHEST. TECHNICAL DOCUMENTATION: JOB ID: [id number] 2010 [employer]- All Rights Reserved Reading location - IP/workstation name: [email or web address]
== END 2019-12-01 12:30 | disposition home or self-care (01) ==
LOC: ER 09:41
DX: U07.1 COVID-19 (principal); J02.8 Acute pharyngitis due to other specified organisms; B97.89 Other viral agents as the cause of diseases classified elsewhere; R06.02 Shortness of breath; M79.10 Myalgia, unspecified site; R05 Cough; R43.8 Other disturbances of smell and taste; J34.89 Other specified disorders of nose and nasal sinuses; Z88.0 Allergy status to penicillin
CPT/HCPCS: 99284; 87070; 87880; 87635; 87804; 71045; C9803

== ENCOUNTER 2019-12-11 10:01 | Emergency (ER) | payer OTHER ==
[2019-12-11] MEDS ORDERED: NORMAL SALINE 1000 ML 1,000 ML IV ONE (11:10)
--- NOTE | 2019-12-11 11:10 | ER Document Report ---
ED Medical Screen (RME) - General Chief Complaint: Shortness Of Breath Stated Complaint: SHORT OF BREATH,COUGH,HEADACHE Time Seen by Provider: 12/11/19 11:07 Primary Care Provider: TRAE FARAH MD [Primary Care Provider] - Follow up as needed Mode of Arrival: Ambulatory Information source: Patient Notes: 24-year-old female presented to ED for short of breath difficulty breathing pain with deep breath and chest pain. Patient states he has substernal chest pain radiating to both sides. He states she is feeling much worse. She states her and her both tested positive at the hospital. She is alert short of breath speaking nightly. Have ordered blood urine chest x-ray and EKG. I have greeted and performed a rapid initial assessment of this patient. A comprehensive ED assessment and evaluation of the patient, analysis of test results and completion of medical decision making process will be conducted by an additional ED providers. TRAVEL OUTSIDE OF THE [place] IN LAST 30 DAYS: No - Related Data Allergies/Adverse Reactions: Penicillins Allergy (Verified 09/30/19 09:41) Past Medical History Renal/ Medical History: Reports: Hx Kidney Stones, Hx Ovarian Cysts Psychiatric Medical History: Reports: Hx Anxiety, Hx Attention Deficit Hyperactivity Disorder, Hx Depression Past Surgical History: Reports: Hx Oral Surgery Physical Exam - Vital signs Vitals: Temp Pulse Resp BP Pulse Ox 98.0 F 77 16 91/42 L 98 12/11/19 10:05 12/11/19 10:05 12/11/19 10:05 12/11/19 10:05 12/11/19 10:05 Course - Vital Signs Vital signs: Temp Pulse Resp BP Pulse Ox 98.0 F 77 16 91/42 L 98 12/11/19 10:05 12/11/19 10:05 12/11/19 10:05 12/11/19 10:05 12/11/19 10:05 Doctor's Discharge - Discharge Referrals: TRAE FARAH MD [Primary Care Provider] - Follow up as needed
--- NOTE | 2019-12-11 11:45 | RADIOLOGY REPORT (SQ) ---
EXAM DESCRIPTION: CHEST SINGLE VIEW IMAGES COMPLETED DATE/TIME: 12/11/2019 11:29 am REASON FOR STUDY: #1 SYNCOPE COMPARISON: 12/01/2019 EXAM PARAMETERS: NUMBER OF VIEWS: One view. TECHNIQUE: Single frontal radiographic view of the chest acquired. RADIATION DOSE: NA LIMITATIONS: None. FINDINGS: LUNGS AND PLEURA: No opacities, masses or pneumothorax. No pleural effusion. MEDIASTINUM AND HILAR STRUCTURES: No masses. Contour normal. HEART AND VASCULAR STRUCTURES: Heart normal in size. Normal vasculature. BONES: No acute findings. HARDWARE: None in the chest. OTHER: Bilateral nipple piercings. IMPRESSION: No focal consolidation or other evidence of acute intrathoracic process. TECHNICAL DOCUMENTATION: JOB ID: [id number] 2010 [employer]- All Rights Reserved Reading location - IP/workstation name: [email or web address]
[2019-12-11 11:50] LABS: ABSOLUTE EOSINOPHILS # (AUTO) 0.1 10^3/uL (0.0-0.6); ABSOLUTE MONOCYTES (AUTO) 0.2 10^3/uL (0.1-1.4); ABSOLUTE NEUT (AUTO) 3.3 10^3/uL (1.7-8.2); BASOPHILS % (AUTO) 0.5 % (0-2); EOSINOPHILS % (AUTO) 1.7 % (0-6); HEMATOCRIT 39.5 % (36.0-47.0); HEMOGLOBIN 13.5 g/dL (12.0-15.5); LYMPHOCYTES % (AUTO) 35.6 % (13-45); MEAN CORPUSCULAR HEMOGLOBIN 31.3 pg (27.0-33.4); MEAN CORPUSCULAR HGB CONC 34.3 g/dL (32.0-36.0); MEAN CORPUSCULAR VOLUME 91 fl (80-97); MONOCYTES % (AUTO) 4.3 % (3-13); PLATELET COUNT 245 10^3/uL (150-450); RED BLOOD COUNT 4.32 10^6/uL (3.72-5.28); RED CELL DISTRIBUTION WIDTH 12.4 % (11.5-14.0); SEGMENTED NEUTROPHILS % (AUTO) 57.9 % (42-78); TOTAL CELLS COUNTED % (AUTO) 100 %; WHITE BLOOD COUNT 5.6 10^3/uL (4.0-10.5)
[2019-12-11 12:13] LABS: ALBUMIN 4.5 g/dL (3.5-5.0); ALKALINE PHOSPHATASE 51 U/L (38-126); ANION GAP 7 (5-19); ASPARTATE AMINO TRANSFERASE 29 U/L (14-36); BILIRUBIN,DIRECT 0.5 mg/dL (0.0-0.4); BILIRUBIN,TOTAL 0.8 mg/dL (0.2-1.3); BLOOD UREA NITROGEN 16 mg/dL (7-20); CALCIUM 9.3 mg/dL (8.4-10.2); CARBON DIOXIDE 26 mmol/L (22-30); CHLORIDE 106 mmol/L (98-107); GLUCOSE 89 mg/dL (75-110); POTASSIUM 4.9 mmol/L (3.6-5.0); TOTAL PROTEIN 7.6 g/dL (6.3-8.2)
[2019-12-11] MEDS ORDERED: KETOROLAC TROMETHAMINE INJ/PF 30 MG/1 ML SDV IV ONE (13:09)
[2019-12-11 13:11] LABS: APPEARANCE,URINE CLEAR; BILIRUBIN,URINE NEGATIVE (NEGATIVE); COLOR,URINE YELLOW; GLUCOSE, URINE NEGATIVE (NEGATIVE); KETONES,URINE NEGATIVE (NEGATIVE); LEUKOCYTE ESTERASE,URINE NEGATIVE (NEGATIVE); NITRITE,URINE NEGATIVE (NEGATIVE); PROTEIN,URINE NEGATIVE (NEGATIVE); URINE SPECIFIC GRAVITY 1.015; UROBILINOGEN,URINE NEGATIVE mg/dL (<2.0)
[2019-12-11 13:30] LABS: URINE AMPHETAMINES SCREEN NEGATIVE; URINE BARBITURATES SCREEN NEGATIVE; URINE BENZODIAZEPINES SCREEN NEGATIVE; URINE COCAINE SCREEN NEGATIVE; URINE METHADONE SCREEN NEGATIVE; URINE PHENCYCLIDINE SCREEN NEGATIVE
[2019-12-11 13:34] LABS: URINE MARIJUANA (THC) SCREEN UNCONFIRMED POSITIVE
--- NOTE | 2019-12-11 14:02 | ER Document Report ---
Entered by LANE GARCIA SCRIBE 12/11/19 [id number] Acting as scribe for:LUIS العلي MD ED General - General Chief Complaint: Shortness Of Breath Stated Complaint: SHORT OF BREATH,COUGH,HEADACHE Time Seen by Provider: 12/11/19 11:07 Primary Care Provider: TRAE FARAH MD [Primary Care Provider] - Follow up as needed Mode of Arrival: Ambulatory Information source: Patient Notes: This 24 year old female patient who tested positive for COVID-19 on 11/30/2019 presents to the emergency department today with complaints of chest pain, nausea, headache, and a continued cough. Patient states that she sometimes has trouble breathing like "if she just walked up a bunch of steps". Patient does not have taste or smell and has not for a few weeks. TRAVEL OUTSIDE OF THE [place] IN LAST 30 DAYS: No - Related Data Allergies/Adverse Reactions: Penicillins Allergy (Verified 09/30/19 09:41) Home Medications: zoloft Past Medical History - General Information source: Patient - Social History Smoking Status: Never Smoker Cigarette use (# per day): No Chew tobacco use (# tins/day): No Frequency of alcohol use: None Drug Abuse: None Lives with: Family Family History: Reviewed & Not Pertinent Patient has homicidal ideation: No Renal/ Medical History: Reports: Hx Kidney Stones, Hx Ovarian Cysts Psychiatric Medical History: Reports: Hx Anxiety, Hx Attention Deficit Hyperactivity Disorder, Hx Depression Past Surgical History: Reports: Hx Oral Surgery Review of Systems - Review of Systems Constitutional: No symptoms reported EENT: No symptoms reported Cardiovascular: See HPI, Chest pain Respiratory: See HPI, Cough Gastrointestinal: See HPI, Nausea Genitourinary: No symptoms reported Female Genitourinary: See HPI, Last menstrual period - began yesterday. denies: Musculoskeletal: No symptoms reported Skin: No symptoms reported Hematologic/Lymphatic: No symptoms reported Neurological/Psychological: See HPI, Headaches -: Yes All other systems reviewed and negative Physical Exam - Vital signs Vitals: Temp Pulse Resp BP Pulse Ox 98.0 F 77 16 91/42 L 98 12/11/19 10:05 12/11/19 10:05 12/11/19 10:05 12/11/19 10:05 12/11/19 10:05 - Notes Notes: Physical Exam: General: Alert, appears well. HEENT: Normocephalic. Atraumatic. PERRL. Extraocular movements intact. Oropharynx clear. Neck: Supple. Non-tender. Respiratory: The room air pulse ox reading is 98%. Patient's respiratory rate is about 18-20. Dry harsh cough. Clear and equal breath sounds bilaterally. Inferior sternum is very tender to palpate. Cardiovascular: Regular rate and rhythm. Abdominal: Normal Inspection. Non-tender, no epigastric or right upper quadrant tenderness to palpation. No distension. Normal Bowel Sounds. Back: No gross abnormalities. Extremities: Moves all four extremities. Upper extremities: Normal inspection. Normal ROM. Lower extremities: Normal inspection. No edema. Normal ROM. Neurological: Normal cognition. AAOx4. Normal speech. Psychological: Normal affect. Normal Mood. Skin: Warm. Dry. Normal color. Course - Re-evaluation Re-evalutation: 12/11/19 15:49 D-dimer was slightly elevated, due to the risk of clotting with COVID-19 infection, a CTA chest will be done. - Vital Signs Vital signs: Temp Pulse Resp BP Pulse Ox 98.0 F 77 16 126/65 H 98 12/11/19 10:05 12/11/19 10:05 12/11/19 10:05 12/11/19 11:01 12/11/19 10:05 - Laboratory Result Diagrams: 12/11/19 11:30 12/11/19 11:30 Laboratory results interpreted by me: 12/11/19 12/11/19 11:30 11:30 D-Dimer 0.54 H Direct Bilirubin 0.5 H - Diagnostic Test Radiology reviewed: Image reviewed, Reports reviewed - Chest x-ray does not show acute radiographic changes. CTA chest showed contrast bolus was not optimized for you and pulmonary arteries. No other abnormalities. - EKG Interpretation by Me EKG shows normal: Sinus rhythm, [place], Intervals, QRS Complexes, ST-T Waves Rate: Normal - 66 Rhythm: NSR Discharge - Discharge Clinical Impression: Lab test positive for detection of COVID-19 virus, Anterior chest wall pain, Shortness of breath Condition: Stable Disposition: HOME, SELF-CARE Additional Instructions: Your lab work today suggest that your Covid infection is probably resolving. The chest x-ray and CT of the chest did not show any lung abnormalities. The contrast bolus was suboptimal for visualizing the pulmonary arteries, but no gross abnormalities were noted. Some people do get sicker 1 to 2 weeks out from initial Covid illness, but they are usually elderly with multiple comorbidities. For now you should continue to isolate at home. Drink plenty of fluids and get plenty of rest. Take 1 baby aspirin once daily. Take Tylenol and ibuprofen for your sternal chest pain. Follow-up with your primary care provider next week if you do not continue to improve. RETURN TO THE EMERGENCY ROOM IF ANY NEW OR WORSENING SYMPTOMS. Referrals: TRAE FARAH MD [Primary Care Provider] - Follow up as needed I personally performed the services described in the documentation, reviewed and edited the documentation which was dictated to the scribe in my presence, and it accurately records my words and actions.
[2019-12-11 14:31] LABS: FERRITIN 24.8 ng/mL (6.2-137.0)
--- NOTE | 2019-12-11 15:53 | RADIOLOGY REPORT (SQ) ---
EXAM DESCRIPTION: CTA CHEST IMAGES COMPLETED DATE/TIME: 12/11/2019 3:37 pm REASON FOR STUDY: Covid +,elevated dimer,SOB, CP COMPARISON: None. TECHNIQUE: CT scan of the chest performed using helical scanning technique with dynamic intravenous contrast injection. Images reviewed with lung, soft tissue and bone windows. Reconstructed coronal and sagittal MPR images reviewed. Additional 3 dimensional post-processing performed to develop Maximal Intensity Projection images ([place] P). All images stored on PACS. All CT scanners at this facility use dose modulation, iterative reconstruction, and/or weight based d osing when appropriate to reduce radiation dose to as low as reasonably achievable (ALARA). [facility]: Dose Right [facility]: CareDose [facility]: Dose Right [facility]: Teradose 4D [facility]: CBC [employer] CONTRAST TYPE AND DOSE: contrast/concentration: Isovue 350.00 mmol/ml; Total Contrast Delivered: 35. 3 ml; Total Saline Delivered: 59.2 ml Contrast bolus optimized for the mid aorta, not optimized for the pulmonary arteries. RENAL FUNCTION: None required. The patient is less than 50 years old. RADIATION DOSE: CT Rad equipment meets quality standard of care and radiation dose reduction techniq ues were employed. CTDIvol: 13.2 - 14.3 mGy. DLP: 458 mGy-cm. . LIMITATIONS: None. FINDINGS: LUNGS AND PLEURA: No masses, infiltrates, or pneumothorax. No pleural effusions or pleura l calcifications. AORTA AND GREAT VESSELS: No aneurysm. No dissection. HEART: No pericardial effusion. No significant coronary artery calcifications. PULMONARY ARTERIES: Contrast bolus not optimized for the pulmonary arteries. HILAR AND MEDIASTINAL STRUCTURES: No identified masses or abnormal nodes. Minimal prevascular soft t issue, likely residual thymus. HARDWARE: None in the chest. Bilateral nipple piercings. UPPER ABDOMEN: No significant findings. Limited exam. THYROID AND OTHER SOFT TISSUES: No masses. No adenopathy. BONES: No acute bony abnormality. No suspicious osseous lesions. 3D MIPS: Confirm above findings. OTHER: No other significant finding. IMPRESSION: 1. Nondiagnostic for pulmonary embolus secondary to contrast bolus timing. 2. No other evidence of acute intrathoracic process. COMMENT: Quality ID # [id number]: Final reports with documentation of one or more dose reduction techniques (e.g., Automated exposure control, adjustment of the mA and/or kV according to patient size, use of iterative reconstruction technique) TECHNICAL DOCUMENTATION: JOB ID: [id number] 2010 [employer]- All Rights Reserved Reading location - IP/workstation name: [email or web address]
[2019-12-11 16:57] VITALS: BP 130/68
--- NOTE | 2019-12-11 18:06 | EKG REPORT ---
SEVERITY:- NORMAL ECG - SINUS RHYTHM : Confirmed by: Bettina Sousa 11-Dec-2019 18:05:57
== END 2019-12-11 16:59 | disposition home or self-care (01) ==
LOC: ER 10:01
DX: U07.1 COVID-19 (principal); R07.89 Other chest pain; R06.02 Shortness of breath; R11.0 Nausea; R51.9 Headache, unspecified; R05 Cough; R43.8 Other disturbances of smell and taste; R79.89 Other specified abnormal findings of blood chemistry; F32.9 Major depressive disorder, single episode, unspecified; F41.9 Anxiety disorder, unspecified; Z79.899 Other long term (current) drug therapy; Z88.0 Allergy status to penicillin
CPT/HCPCS: 93005; 99285; 96361; 96374; 36415; 87086; 82550; 82728; 84703; 85025; 80053; 81001; 84484; 80307; 85379; 71045; 71275; 93010; J1885; J7030

== ENCOUNTER 2020-01-15 17:05 | Emergency (ER) | payer OTHER ==
[2020-01-15] MEDS ORDERED: NORMAL SALINE 1000 ML 1,000 ML IV ONE (18:08)
--- NOTE | 2020-01-15 18:10 | ER Document Report ---
ED Medical Screen (RME) - General Stated Complaint: VOMITING Time Seen by Provider: 01/15/20 18:04 Primary Care Provider: TRAE FARAH MD [Primary Care Provider] - Follow up as needed TRAVEL OUTSIDE OF THE [place] IN LAST 30 DAYS: No - HPI Notes: Patient is a 24 y/o female who is 5-6 weeks who presents with nausea and vomiting for the past week. She has been unable to keep anything down for the last three days. She reports abdominal pain but denies vaginal bleeding and diarrhea. P:1 - Related Data Allergies/Adverse Reactions: Penicillins Allergy (Verified 09/30/19 09:41) Past Medical History Renal/ Medical History: Reports: Hx Kidney Stones, Hx Ovarian Cysts Psychiatric Medical History: Reports: Hx Anxiety, Hx Attention Deficit Hyperactivity Disorder, Hx Depression Past Surgical History: Reports: Hx Oral Surgery Physical Exam - Vital signs Vitals: Temp Pulse Resp BP Pulse Ox 98.2 F 74 16 112/67 100 01/15/20 18:00 01/15/20 18:00 01/15/20 18:00 01/15/20 18:00 01/15/20 18:00 - Abdominal Distension: No distension Bowel sounds: Normal Tenderness: Nontender Course - Re-evaluation Re-evalutation: I have greeted and performed a rapid initial assessment of this patient. A comprehensive ED assessment and evaluation of the patient, analysis of test results and completion of medical decision making process will be conducted by an additional ED providers. - Vital Signs Vital signs: Temp Pulse Resp BP Pulse Ox 98.2 F 74 16 112/67 100 01/15/20 18:00 01/15/20 18:00 01/15/20 18:00 01/15/20 18:00 01/15/20 18:00 Doctor's Discharge - Discharge Referrals: TRAE FARAH MD [Primary Care Provider] - Follow up as needed
[2020-01-15 18:42] LABS: ABSOLUTE EOSINOPHILS # (AUTO) 0.1 10^3/uL (0.0-0.6); ABSOLUTE LYMPHOCYTES (AUTO) 1.9 10^3/uL (0.5-4.7); ABSOLUTE MONOCYTES (AUTO) 0.4 10^3/uL (0.1-1.4); ABSOLUTE NEUT (AUTO) 6.1 10^3/uL (1.7-8.2); APPEARANCE,URINE SLIGHTLY-CLOUDY; BASOPHILS % (AUTO) 0.3 % (0-2); BILIRUBIN,URINE NEGATIVE (NEGATIVE); COLOR,URINE YELLOW; EOSINOPHILS % (AUTO) 0.6 % (0-6); GLUCOSE, URINE NEGATIVE (NEGATIVE); HEMATOCRIT 36.9 % (36.0-47.0); HEMOGLOBIN 12.6 g/dL (12.0-15.5); KETONES,URINE 20 mg/dL (NEGATIVE); LEUKOCYTE ESTERASE,URINE SMALL (NEGATIVE); LYMPHOCYTES % (AUTO) 22.8 % (13-45); MEAN CORPUSCULAR HEMOGLOBIN 30.9 pg (27.0-33.4); MEAN CORPUSCULAR VOLUME 91 fl (80-97); MONOCYTES % (AUTO) 4.3 % (3-13); NITRITE,URINE NEGATIVE (NEGATIVE); PLATELET COUNT 239 10^3/uL (150-450); PROTEIN,URINE NEGATIVE (NEGATIVE); RED BLOOD COUNT 4.07 10^6/uL (3.72-5.28); TOTAL CELLS COUNTED % (AUTO) 100 %; URINE SPECIFIC GRAVITY 1.017; UROBILINOGEN,URINE NEGATIVE mg/dL (<2.0); WHITE BLOOD COUNT 8.4 10^3/uL (4.0-10.5)
[2020-01-15 18:57] LABS: ALBUMIN 4.7 g/dL (3.5-5.0); ALKALINE PHOSPHATASE 57 U/L (38-126); ANION GAP 13 (5-19); ASPARTATE AMINO TRANSFERASE 20 U/L (14-36); BILIRUBIN,TOTAL 0.4 mg/dL (0.2-1.3); BLOOD UREA NITROGEN 11 mg/dL (7-20); CALCIUM 9.5 mg/dL (8.4-10.2); CARBON DIOXIDE 22 mmol/L (22-30); CHLORIDE 102 mmol/L (98-107); GLUCOSE 91 mg/dL (75-110); TOTAL PROTEIN 7.7 g/dL (6.3-8.2)
--- NOTE | 2020-01-15 20:59 | RADIOLOGY REPORT (SQ) ---
EXAM DESCRIPTION: US TRANSVAGINAL COMPLETED DATE/TME: 01/15/2020 20:34 CLINICAL HISTORY: 24 years, Female, abdominal pain COMPARISON: Prior study from 09/30/2019 TECHNIQUE: Axial 2-D grayscale images of the pelvis were acquired. LIMITATIONS: None. FINDINGS: Uterus measures 8.9 x 5.1 x 6.1 cm in size. A single intrauterine gestational sac is identified which appears ovoid in configuration. Cervix is closed, measuring 2.3 cm in length. Yolk sac is present. [place]-rump length measures 0.4 cm for an estimated gestational age of 6 weeks and 1 day. heart rate is 132 bpm. In addition, there is an area of ill-defined hypoechogenicity located about the periphery of the gestational sac measuring 1.1 x 0.8 x 0.7 cm in size. Right ovary measures 3.4 x 2.2 x 2.8 cm in size. Left ovary measures 3.0 x 2.3 x 1.8 cm in size. Both appear normal in echogenicity. No free fluid is identified. IMPRESSION: Single live intrauterine , as above described. However, there is an area of hypoechogenicity about the periphery of the gestational sac measuring 1.1 x 0.8 x 0.7 cm in size, suspicious for a subchorionic hematoma. copyright 2010 [employer]- All Rights Reserved
[2020-01-15] MEDS ORDERED: ONDANSETRON HCL INJ/PF 4 MG/2 ML SDV IV ONE (21:41)
--- NOTE | 2020-01-15 22:34 | ER Document Report ---
Entered by LANE GARCIA SCRIBE 01/15/202033 Acting as scribe for:MISAEL SMALLWOOD DO ED GI/ - General Chief Complaint: Nausea/Vomiting Stated Complaint: VOMITING Time Seen by Provider: 01/15/20 18:04 Primary Care Provider: TRAE FARAH MD [Primary Care Provider] - Follow up as needed Mode of Arrival: Ambulatory Information source: Patient Notes: This 24 year old female patient that is 6 weeks , presents to the emergency department today with complaints of nausea and vomiting for the last week. Patient had nausea with her last as well. Patient's last menstrual period was December 07. Patient denies any diarrhea, chest pain, shortness of breath, COVID-19 exposure, urinary symptoms, or vaginal discharge. TRAVEL OUTSIDE OF THE [place] IN LAST 30 DAYS: No - Related Data Allergies/Adverse Reactions: Penicillins Allergy (Verified 09/30/19 09:41) Past Medical History - General Information source: Patient - Social History Smoking Status: Never Smoker Cigarette use (# per day): No Frequency of alcohol use: None Drug Abuse: None Lives with: Family Family History: Reviewed & Not Pertinent Renal/ Medical History: Reports: Hx Kidney Stones, Hx Ovarian Cysts Psychiatric Medical History: Reports: Hx Anxiety, Hx Attention Deficit Hyperactivity Disorder, Hx Depression - anxiety Past Surgical History: Reports: Hx Oral Surgery Review of Systems - Review of Systems Constitutional: No symptoms reported EENT: No symptoms reported Cardiovascular: denies: Chest pain Respiratory: denies: Short of breath Gastrointestinal: See HPI, Nausea, Vomiting. denies: Diarrhea Genitourinary: No symptoms reported Female Genitourinary: See HPI, . denies: Vaginal discharge Musculoskeletal: No symptoms reported Skin: No symptoms reported Hematologic/Lymphatic: No symptoms reported Neurological/Psychological: No symptoms reported -: Yes All other systems reviewed and negative Physical Exam - Vital signs Vitals: Temp Pulse Resp BP Pulse Ox 98.2 F 74 16 112/67 100 01/15/20 18:00 01/15/20 18:00 01/15/20 18:00 01/15/20 18:00 01/15/20 18:00 Interpretation: Normal - Notes Notes: Physical Exam: General: Alert, appears well. HEENT: Normocephalic. Atraumatic. PERRL. Extraocular movements intact. Oropharynx clear. Dry mucous membranes. Neck: Supple. Non-tender. Respiratory: No respiratory distress. Clear and equal breath sounds bilaterally. Cardiovascular: Regular rate and rhythm. Abdominal: Normal Inspection. Non-tender. No distension. Normal Bowel Sounds. Back: No gross abnormalities. Extremities: Moves all four extremities. Upper extremities: Normal inspection. Normal ROM. Lower extremities: Normal inspection. No edema. Normal ROM. Neurological: Normal cognition. AAOx4. Normal speech. Psychological: Normal affect. Normal Mood. Skin: Warm. Dry. Normal color. - General General appearance: Appears well, Alert - HEENT Head: Normocephalic, Atraumatic Eyes: Normal Pupils: PERRL - Respiratory Respiratory status: No respiratory distress Chest status: Nontender Breath sounds: Normal Chest palpation: Normal - Cardiovascular Rhythm: Regular Heart sounds: Normal auscultation Murmur: No - Abdominal Inspection: Normal Distension: No distension Bowel sounds: Normal Tenderness: Nontender Organomegaly: No organomegaly - Back Back: Normal, Nontender - Extremities General upper extremity: Normal inspection, Nontender, Normal color, Normal ROM, Normal temperature General lower extremity: Normal inspection, Nontender, Normal color, Normal ROM, Normal temperature, Normal weight bearing. No: Nhi's sign - Neurological Neuro grossly intact: Yes Cognition: Normal Orientation: AAOx4 [place] Coma Scale Eye Opening: Spontaneous [place] Coma Scale Verbal: Oriented [place] Coma Scale Motor: Obeys Commands [place] Coma Scale Total: 15 Speech: Normal Motor strength normal: LUE, RUE, LLE, RLE Sensory: Normal - Psychological Associated symptoms: Normal affect, Normal mood - Skin Skin Temperature: Warm Skin Moisture: Dry Skin Color: Normal Course - Re-evaluation Re-evalutation: 01/15/20 23:27 MDM 24 year old female currently at about 6 weeks gestation with nausea and vomiting. No fever or chills. No chest pain or sob and no vaginal discharge or urinary symptoms. Feels better here after IVF and zofran. Discussed follow up and she expressed understanding. - Vital Signs Vital signs: Temp Pulse Resp BP Pulse Ox 98.2 F 74 16 112/67 100 01/15/20 18:00 01/15/20 18:00 01/15/20 18:00 01/15/20 18:00 01/15/20 18:00 - Laboratory Result Diagrams: 01/15/20 18:16 01/15/20 18:16 Laboratory results interpreted by me: 01/15/20 01/15/20 18:16 18:16 Sodium 136.7 L Beta HCG, Quant 30236.00 H Urine Ketones 20 H Ur Leukocyte Esterase SMALL H - Diagnostic Test Radiology reviewed: Reports reviewed Discharge - Discharge Clinical Impression: at early stage Nausea & vomiting Qualifiers: Vomiting type: unspecified Vomiting Intractability: non-intractable Qualified Code(s): R11.2 - Nausea with vomiting, unspecified Condition: Stable Disposition: HOME, SELF-CARE Instructions: Intravenous (IV) Fluids ([facility]), Vomiting ([facility]), Antinausea Medication ([facility]) Additional Instructions: See the Obstetric doctor in follow up. Please call them Saturday. Return here for abdominal pain, vaginal bleeding or other problems or concerns. Referrals: TRAE FARAH MD [Primary Care Provider] - Follow up as needed I personally performed the services described in the documentation, reviewed and edited the documentation which was dictated to the scribe in my presence, and it accurately records my words and actions.
[2020-01-15] MEDS ORDERED: ONDANSETRON ODT 4 MG TAB (6 TAB/ER DISP) PO PRN (23:31)
[2020-01-16 00:15] VITALS: BP 110/70
== END 2020-01-16 00:10 | disposition home or self-care (01) ==
LOC: ER 17:05
DX: O21.8 Other vomiting complicating pregnancy (principal); Z3A.01 Less than 8 weeks gestation of pregnancy; Z88.0 Allergy status to penicillin; Z87.442 Personal history of urinary calculi
CPT/HCPCS: 99285; 96361; 96374; 36415; 87086; 84702; 85025; 80053; 81001; 76817; J2405; J7030

== ENCOUNTER 2020-02-08 13:34 | Emergency (ER) | payer MEDICAID, OTHER ==
[2020-02-08] MEDS ORDERED: METOCLOPRAMIDE HCL INJ/PF 10 MG/2 ML SDV IV ONE (14:02)
[2020-02-08] MEDS ORDERED: NORMAL SALINE 1000 ML 1,000 ML IV ONE (14:03)
--- NOTE | 2020-02-08 14:09 | ER Document Report ---
ED Medical Screen (RME) - General Chief Complaint: Abdominal Pain Stated Complaint: ABDOMINAL PAIN Time Seen by Provider: 02/08/20 13:56 Primary Care Provider: TRAE FARAH MD [Primary Care Provider] - Follow up as needed Notes: Patient is a 24-year-old female who presents emergency department with a chief complaint of lower abdominal pain. Patient is currently 9 weeks . G2, P1. Denies any vaginal bleeding. States that the cramping is in her abdomen and low back. Exam: Left lower abdominal tenderness. I have greeted and performed a rapid initial assessment of this patient. A comprehensive ED assessment and evaluation of the patient, analysis of test results and completion of medical decision making process will be conducted by an additional ED providers. TRAVEL OUTSIDE OF THE [place] IN LAST 30 DAYS: No - Related Data Allergies/Adverse Reactions: Penicillins Allergy (Verified 09/30/19 09:41) Past Medical History Renal/ Medical History: Reports: Hx Kidney Stones, Hx Ovarian Cysts Psychiatric Medical History: Reports: Hx Anxiety, Hx Attention Deficit H yperactivity Disorder, Hx Depression - anxiety Past Surgical History: Reports: Hx Oral Surgery Physical Exam - Vital signs Vitals: Temp Pulse Resp BP Pulse Ox 98.7 F 73 16 116/60 99 02/08/20 13:44 02/08/20 13:44 02/08/20 13:44 02/08/20 13:44 02/08/20 13:44 Course - Vital Signs Vital signs: Temp Pulse Resp BP Pulse Ox 98.7 F 73 16 116/60 99 02/08/20 13:44 02/08/20 13:44 02/08/20 13:44 02/08/20 13:44 02/08/20 13:44 Doctor's Discharge - Discharge Referrals: TRAE FARAH MD [Primary Care Provider] - Follow up as needed
--- NOTE | 2020-02-08 14:53 | RADIOLOGY REPORT (SQ) ---
EXAM DESCRIPTION: U/S [id number] TRNABD 1GES W/ODOP IMAGES COMPLETED DATE/TIME: 02/08/2020 2:42 pm REASON FOR STUDY: abdominal cramping 9 wks gest COMPARISON: 01/15/2020 TECHNIQUE: Transabdominal static and realtime grayscale images acquired of the pelvis. Additional se lected spectral and color Doppler images recorded. All images stored on PACs. bHCG: Not available. CLINICAL DATES: LMP 12/08/2019. 8 weeks 6 days LIMITATIONS: None. FINDINGS: FETUS: Single Living intrauterine . ULTRASOUND EGA: 9 weeks 4 days ULTRASOUND CANDIDA: 09/08/2020 EFW: Not applicable less than 20 weeks. CRL: 2.8 cm. FHR: 160 beats per minute. SURVEY: Too early to assess. AMNIOTIC FLUID: Adequate amount. PLACENTA: Not yet developed due to early gestation. SUBCHORIONIC BLEED: There appears to be a small resolving subchorionic hemorrhage measuring 2.4 x 2 x 1.7 cm. SIZE OF BLEED: See above. UTERUS: No masses. No anomalies. CERVICAL LENGTH: 2.8 cm. Closed. RIGHT ADNEXA: Normal ovary with normal vascular flow. 2.5 x 2.3 x 1.8 cm. No adnexal free fluid. No adnexal masses. LEFT ADNEXA: Normal ovary with normal vascular flow. 3.1 x 1.9 x 1.8 cm. No adnexal free fluid. No adnexal masses. FREE FLUID: None. OTHER: No other significant finding. IMPRESSION: LIVING INTRAUTERINE . EGA 9 weeks 4 days Trimester of : First trimester - 0 to 13 weeks. TECHNICAL DOCUMENTATION: JOB ID: [id number] [employer]- All Rights Reserved rev-07/12 Reading location - IP/workstation name: [email or web address]
[2020-02-08 15:21] LABS: ABSOLUTE LYMPHOCYTES (AUTO) 1.9 10^3/uL (0.5-4.7); ABSOLUTE MONOCYTES (AUTO) 0.4 10^3/uL (0.1-1.4); ABSOLUTE NEUT (AUTO) 6.4 10^3/uL (1.7-8.2); BASOPHILS % (AUTO) 0.3 % (0-2); EOSINOPHILS % (AUTO) 0.4 % (0-6); HEMATOCRIT 37.6 % (36.0-47.0); HEMOGLOBIN 12.9 g/dL (12.0-15.5); LYMPHOCYTES % (AUTO) 21.7 % (13-45); MEAN CORPUSCULAR HGB CONC 34.2 g/dL (32.0-36.0); MEAN CORPUSCULAR VOLUME 91 fl (80-97); MONOCYTES % (AUTO) 4.1 % (3-13); PLATELET COUNT 229 10^3/uL (150-450); RED BLOOD COUNT 4.15 10^6/uL (3.72-5.28); RED CELL DISTRIBUTION WIDTH 12.6 % (11.5-14.0); SEGMENTED NEUTROPHILS % (AUTO) 73.5 % (42-78); TOTAL CELLS COUNTED % (AUTO) 100 %; WHITE BLOOD COUNT 8.7 10^3/uL (4.0-10.5)
--- NOTE | 2020-02-08 15:34 | ER Document Report ---
ED GI/ - General Chief Complaint: Abdominal Pain Stated Complaint: ABDOMINAL PAIN Time Seen by Provider: 02/08/20 13:56 Primary Care Provider: TRAE FARAH MD [NO LOCAL MD] - Follow up as needed Notes: 02/08/20 13:57 - Nursing Note by LEVON REYNA Acct Num: [id number] : 1995 Patient Age: 24 PT arrives via wheelchair. PT states that she is 9 weeks . Pt reports having nausea, vomiting and intermittent abd cramping for two weeks. Pt states that she saw her pcp and was prescribed Zofran. Pt states that it is not helping and she has been unable to keep food down for about a week. Pt denies any vaginal bleeding. Pt denies any other distress. pt is a&ox4 with e/u r espirations. Initialized on 02/08/20 13:57 - END OF NOTE ED Medical Screen (Place notes) - General Chief Complaint: Abdominal Pain Stated Complaint: ABDOMINAL PAIN Time Seen by Provider: 02/08/20 13:56 Primary Care Provider: TRAE FARAH MD [Primary Care Provider] - Follow up as needed Notes: Patient is a 24-year-old female who presents emergency department with a chief complaint of lower abdominal pain. Patient is currently 9 weeks . G2, P1. Denies any vaginal bleeding. States that the cramping is in her abdomen and low back. Exam: Left lower abdominal tenderness. MY NOTES 24-year-old female who is 9 weeks and has emesis gravidarum since her began. She has had a 10 pound weight loss. She reports with her 3-year-old daughter she had no complications. She does report her aunt had problems with all of her cousins during their gestations. Patient denies any COVID-19 or influenza or sore throat and denies any cephalgia but does admit to 1 week of tachycardia and dehydration. TRAVEL OUTSIDE OF THE [place] IN LAST 30 DAYS: No - Related Data Allergies/Adverse Reactions: Penicillins Allergy (Verified 09/30/19 09:41) Past Medical History - General Information source: Patient - Social History Smoking Status: Never Smoker Cigarette use (# per day): No Chew tobacco use (# tins/day): No Smoking Education Provided: No Frequency of alcohol use: None Drug Abuse: None Lives with: Family Family History: Reviewed & Not Pertinent Patient has suicidal ideation: No Patient has homicidal ideation: No Renal/ Medical History: Reports: Hx Kidney Stones, Hx Ovarian Cysts Psychiatric Medical History: Reports: Hx Anxiety, Hx Attention Deficit Hyperactivity Disorder, Hx Depression - anxiety Past Surgical History: Reports: Hx Oral Surgery Review of Systems - Review of Systems Constitutional: See HPI, Weakness, Recent illness EENT: No symptoms reported Cardiovascular: No symptoms reported Respiratory: No symptoms reported Gastrointestinal: See HPI, Nausea, Vomiting Genitourinary: No symptoms reported Female Genitourinary: See HPI, Musculoskeletal: No symptoms reported Skin: No symptoms reported Hematologic/Lymphatic: No symptoms reported Neurological/Psychological: No symptoms reported Physical Exam - Vital signs Vitals: Temp Pulse Resp BP Pulse Ox 98.7 F 73 16 116/60 99 02/08/20 13:44 02/08/20 13:44 02/08/20 13:44 02/08/20 13:44 02/08/20 13:44 Interpretation: Normal - General General appearance: Appears well, Alert - HEENT Head: Normocephalic, Atraumatic Eyes: Normal Pupils: PERRL External canal: Normal Mucous membranes: Dry Pharynx: Normal Neck: Normal - Respiratory Respiratory status: No respiratory distress Chest status: Nontender Breath sounds: Normal Chest palpation: Normal - Cardiovascular Rhythm: Regular Heart sounds: Normal auscultation Murmur: No Friction rub: No - Abdominal Inspection: Normal Distension: No distension Bowel sounds: Normal Tenderness: Nontender Organomegaly: No organomegaly - Rectal Hemorrhoids: Other - deferred - Genitourinary Bimanuel exam: Other - deferred - Back Back: Normal - Extremities General upper extremity: Normal inspection, Nontender, Normal color, Normal ROM, Normal temperature General lower extremity: Normal inspection, Nontender, Normal color, Normal ROM, Normal temperature, Normal weight bearing. No: Nhi's sign - Neurological Neuro grossly intact: Yes Cognition: Normal Orientation: AAOx4 Maljamar Coma Scale Eye Opening: Spontaneous Hipolito Coma Scale Verbal: Oriented Hip[place]ito Coma Scale Motor: Obeys Commands Hipolito Coma Scale Total: 15 Speech: Normal Motor strength normal: LUE, RUE, LLE, RLE Sensory: Normal - Psychological Associated symptoms: Normal affect - Skin Skin Temperature: Warm Skin Moisture: Dry Skin Color: Normal Course - Vital Signs Vital signs: Temp Pulse Resp BP Pulse Ox 98.7 F 73 16 116/60 99 02/08/20 13:44 02/08/20 13:44 02/08/20 13:44 02/08/20 13:44 02/08/20 13:44 - Laboratory Results Result Diagrams: 02/08/20 14:56 02/08/20 14:56 Critical Laboratory Results Reviewed: Yes Attending or Supervising Physician who Reviewed Labs: AKBAR SANCHEZ JR - Radiology Results Radiology Results Interpreted: 02/08/20 16:03 danni Critical Radiology Results Reviewed: No Critical Results Attending or Supervising Physician who Reviewed Radiology: AKBAR SANCHEZ JR Discharge - Discharge Clinical Impression: EMESIS GRAVIDARUM Condition: Stable Disposition: HOME, SELF-CARE Additional Instructions: Follow with OB doctor this week; return to ED as needed; encourage fluids; Prescriptions: Promethazine HCl [Phenergan 25 mg Tablet] 1 tab PO Q6H PRN #15 tablet PRN Reason: Referrals: TRAE FARAH MD [NO LOCAL MD] - Follow up as needed
[2020-02-08 15:36] LABS: ALBUMIN 4.3 g/dL (3.5-5.0); ALKALINE PHOSPHATASE 48 U/L (38-126); ANION GAP 8 (5-19); ASPARTATE AMINO TRANSFERASE 21 U/L (14-36); BILIRUBIN,TOTAL 0.4 mg/dL (0.2-1.3); BLOOD UREA NITROGEN 9 mg/dL (7-20); CALCIUM 9.4 mg/dL (8.4-10.2); CARBON DIOXIDE 25 mmol/L (22-30); CHLORIDE 101 mmol/L (98-107); GLUCOSE 74 mg/dL (75-110); POTASSIUM 4.4 mmol/L (3.6-5.0); TOTAL PROTEIN 7.4 g/dL (6.3-8.2)
[2020-02-08 16:01] VITALS: BP 114/55
[2020-02-08 16:04] LABS: APPEARANCE,URINE SLIGHTLY-CLOUDY; BILIRUBIN,URINE NEGATIVE (NEGATIVE); COLOR,URINE YELLOW; GLUCOSE, URINE NEGATIVE (NEGATIVE); KETONES,URINE 80 mg/dL (NEGATIVE); LEUKOCYTE ESTERASE,URINE SMALL (NEGATIVE); NITRITE,URINE NEGATIVE (NEGATIVE); PROTEIN,URINE 30 mg/dL (NEGATIVE); URINE SPECIFIC GRAVITY 1.027; UROBILINOGEN,URINE NEGATIVE mg/dL (<2.0)
== END 2020-02-08 16:13 | disposition home or self-care (01) ==
LOC: ER 13:34
DX: O21.9 Vomiting of pregnancy, unspecified (principal); O26.891 Other specified pregnancy related conditions, first trimester; R63.4 Abnormal weight loss; R53.1 Weakness; R10.30 Lower abdominal pain, unspecified; R10.814 Left lower quadrant abdominal tenderness; R25.2 Cramp and spasm; Z3A.09 9 weeks gestation of pregnancy; Z88.0 Allergy status to penicillin; Z87.442 Personal history of urinary calculi
CPT/HCPCS: 99285; 96361; 96374; 86900; 86901; 36415; 84702; 83690; 84443; 85025; 80053; 81001; 76801; J2765; J7030